=== PATIENT | female | born 1990 | race Two or more races ===

== ENCOUNTER 2022-10-13 18:09 | Emergency (ER) | payer OTHER ==
[~2022-10-13] VITALS: Ht 170.2 cm; Wt 109.8 kg
[2022-10-13] MEDS ORDERED: PRENATAL + DHA1 EAC1 PO (18:51)
[2022-10-13] MEDS ORDERED: FOLIC ACID20 MG PO (18:51)
[2022-10-13] MEDS ORDERED: ZOFRAN8 MG PO (22:04)
== END 2022-10-13 22:14 | disposition home or self-care (01) ==
LOC: ER 18:09
PROVIDERS: General Practice
DX: Z34.90 Encounter for supervision of normal pregnancy, unspecified, unspecified trimester (principal); Z3A.25 25 weeks gestation of pregnancy; R10.9 Unspecified abdominal pain; R11.10 Vomiting, unspecified; Z88.6 Allergy status to analgesic agent

== ENCOUNTER 2022-12-05 16:04 | Outpatient (CLI) | payer OTHER ==
[~2022-12-05] VITALS: Ht 170.2 cm; Wt 108.9 kg
[~2022-12-05 16:04] MED LIST: PRENATAL + DHA1 EAC1 PO; ZOFRAN8 MG PO
[2022-12-05 17:27] LABS: HEMATOCRIT 32.7 % (36.0-45.00); HEMOGLOBIN 10.6 g/dL (12.0-15.00); MEAN CELL VOLUME 90.2 fL (80.00-100.00); MEAN CORPUSCULAR HEMOGLOBIN 29.2 pg (27.00-32.0); MEAN CORPUSCULAR HGB CONC 32.4 g/dl (32.0-36.0); PLATELET COUNT 220 K/uL (150-450); RED BLOOD COUNT 3.62 M/uL (4.00-6.00); RED CELL DISTRIBUTION WIDTH 12.8 % (11.5-14.5)
[2022-12-05 17:28] LABS: PH,URINE 5.5 (5.0-8.0); URINE APPEARANCE Cloudy; URINE BILIRRUBIN Negative (NEGATIVE); URINE BLOOD Negative; URINE COLOR Yellow; URINE GLUCOSE Negative (NEGATIVE); URINE LEUKOCYTE Large; URINE NITRATE Negative; URINE PROTEIN Trace (NEGATIVE)
[2022-12-05 17:29] LABS: URINE BACTERIA 6366.5 uL (0.0-1933); URINE EPITHELIAL CELLS 98.1 uL (0.0-38.8); URINE RBC 5.6 uL (0.0-20.8); URINE WBC 570.3 uL (0.0-23.2)
== END 2022-12-06 10:10 | disposition home or self-care (01) ==
LOC: OBS/DEL 16:04
PROVIDERS: ATTEND Obstetrics & Gynecology
DX: O60.03 Preterm labor without delivery, third trimester (principal); Z3A.32 32 weeks gestation of pregnancy; Z88.3 Allergy status to other anti-infective agents

== ENCOUNTER 2022-12-08 12:38 | Inpatient (IN) | payer OTHER ==
[~2022-12-08] VITALS: Ht 170.2 cm; Wt 108.9 kg
[2022-12-08 14:30] LABS: HEMOGLOBIN 10.8 g/dL (12.0-15.00); MEAN CELL VOLUME 90.1 fL (80.00-100.00); MEAN CORPUSCULAR HEMOGLOBIN 29.5 pg (27.00-32.0); MEAN CORPUSCULAR HGB CONC 32.7 g/dl (32.0-36.0); PLATELET COUNT 219 K/uL (150-450); RED BLOOD COUNT 3.66 M/uL (4.00-6.00); RED CELL DISTRIBUTION WIDTH 12.6 % (11.5-14.5)
[2022-12-08 15:00] LABS: PH,URINE 6.5 (5.0-8.0); URINE APPEARANCE Clear; URINE BILIRRUBIN Negative (NEGATIVE); URINE BLOOD Negative; URINE COLOR Yellow; URINE GLUCOSE Negative (NEGATIVE); URINE LEUKOCYTE Negative; URINE NITRATE Negative; URINE PROTEIN Negative (NEGATIVE)
[2022-12-08 15:04] LABS: URINE BACTERIA 15.1 uL (0.0-1933); URINE EPITHELIAL CELLS 6.7 uL (0.0-38.8); URINE WBC 10.9 uL (0.0-23.2)
[2022-12-08 15:06] LABS: URINE RBC 0.8 uL (0.0-20.8)
[2022-12-08 15:46] LABS: CREATININE SERUM 0.65 mg/dL (0.55-1.02); GFR 106.31; POTASSIUM 4.56 mEq/L (3.5-5.1)
[2022-12-10] MEDS ORDERED: FOLIC ACID20 MG PO (12:50)
== END 2022-12-12 17:53 | disposition home or self-care (01) | DRG 833 ==
LOC: LDR 12:38 → OB/GYN 12-10 14:26
PROVIDERS: ADMIT Obstetrics & Gynecology; ATTEND Obstetrics & Gynecology
PROC: BY4FZZZ Ultrasonography of Third Trimester, Single Fetus (ICD-10-PCS; principal; 2022-12-08)
PROC: 4A1HXCZ Monitoring of Products of Conception, Cardiac Rate, External Approach (ICD-10-PCS; 2022-12-08)
DX: O47.03 False labor before 37 completed weeks of gestation, third trimester (principal); O26.843 Uterine size-date discrepancy, third trimester; O36.8130 Decreased fetal movements, third trimester, not applicable or unspecified; Z3A.33 33 weeks gestation of pregnancy; Z20.822 Contact with and (suspected) exposure to COVID-19

== ENCOUNTER 2023-01-03 14:19 | Outpatient (CLI) | payer OTHER ==
[~2023-01-03 14:19] MED LIST changes: +FOLIC ACID20 MG PO
== END 2023-01-03 14:22 | disposition home or self-care (01) ==
LOC: PRENATAL 14:19
PROVIDERS: ATTEND Obstetrics & Gynecology Maternal & Fetal Medicine
DX: O26.849 Uterine size-date discrepancy, unspecified trimester (principal); O36.8199 Decreased fetal movements, unspecified trimester, other fetus; O99.210 Obesity complicating pregnancy, unspecified trimester; Z3A.36 36 weeks gestation of pregnancy

== ENCOUNTER 2023-01-28 16:40 | Inpatient (IN) | payer OTHER ==
[~2023-01-28] VITALS: Ht 170.2 cm; Wt 112.9 kg
[2023-01-28 17:52] LABS: HEMATOCRIT 34.4 % (36.0-45.00); HEMOGLOBIN 11.4 g/dL (12.0-15.00); MEAN CELL VOLUME 88.4 fL (80.00-100.00); MEAN CORPUSCULAR HEMOGLOBIN 29.4 pg (27.00-32.0); MEAN CORPUSCULAR HGB CONC 33.2 g/dl (32.0-36.0); PLATELET COUNT 211 K/uL (150-450); RED BLOOD COUNT 3.89 M/uL (4.00-6.00); RED CELL DISTRIBUTION WIDTH 13.1 % (11.5-14.5)
[2023-01-28 17:54] LABS: PH,URINE 5.5 (5.0-8.0); URINE APPEARANCE Cloudy; URINE BILIRRUBIN Small (NEGATIVE); URINE BLOOD Moderate; URINE COLOR Dark Yellow; URINE GLUCOSE Negative (NEGATIVE); URINE LEUKOCYTE Moderate; URINE NITRATE Negative; URINE PROTEIN Negative (NEGATIVE)
[2023-01-28 17:59] LABS: URINE RBC 6.7 uL (0.0-20.8); URINE WBC 119.8 uL (0.0-23.2)
[2023-01-29 03:21] LABS: HEMATOCRIT 34.1 % (36.0-45.00); HEMOGLOBIN 11.4 g/dL (12.0-15.00); MEAN CELL VOLUME 86.9 fL (80.00-100.00); MEAN CORPUSCULAR HGB CONC 33.4 g/dl (32.0-36.0); PLATELET COUNT 202 K/uL (150-450); RED BLOOD COUNT 3.93 M/uL (4.00-6.00); RED CELL DISTRIBUTION WIDTH 13.5 % (11.5-14.5)
== END 2023-01-30 17:25 | disposition home or self-care (01) | DRG 807 ==
LOC: OBS/DEL 16:40 → OB/GYN 20:42 → LDR 20:42 → OB/GYN 01-29 00:48
PROVIDERS: Obstetrics & Gynecology; ADMIT Obstetrics & Gynecology; ATTEND Obstetrics & Gynecology
PROC: 10E0XZZ Delivery of Products of Conception, External Approach (ICD-10-PCS; principal; 2023-01-28)
PROC: 0KQM0ZZ Repair Perineum Muscle, Open Approach (ICD-10-PCS; 2023-01-28)
PROC: 0UQG7ZZ Repair Vagina, Via Natural or Artificial Opening (ICD-10-PCS; 2023-01-28)
PROC: 4A1HXCZ Monitoring of Products of Conception, Cardiac Rate, External Approach (ICD-10-PCS; 2023-01-28)
DX: O70.1 Second degree perineal laceration during delivery (principal); Z37.0 Single live birth; Z3A.40 40 weeks gestation of pregnancy; Z20.822 Contact with and (suspected) exposure to COVID-19